=== PATIENT | female | born 1995 | race Caucasian/White ===

== ENCOUNTER 2017-03-18 15:11 | Emergency (ER) | payer MEDICAID ==
[2017-03-18 18:26] LABS: APPEARANCE HAZY (CLEAR); BILIRUBIN NEGATIVE (NEGATIVE); COLOR YELLOW (YELLOW); GLUCOSE NEGATIVE (NEGATIVE); KETONE NEGATIVE (NEGATIVE); NITRITE NEGATIVE (NEGATIVE); PROTEIN NEGATIVE (NEGATIVE); SPECIFIC GRAVITY 1.015 (1.005-1.020); UROBILINOGEN NORMAL (NORMAL)
[2017-03-18 18:28] LABS: BACTERIA MODERATE /hpf (NONE SEEN); EPITHELIAL CELLS 0-5 /hpf (0-5); HCG URINE NEGATIVE (NEGATIVE); MUCUS <1+ /lpf (NONE SEEN); RED CELLS - URINE 0-5 /hpf (0-5)
== END 2017-03-18 19:15 | disposition home or self-care (01) ==
LOC: D.ER 15:11
PROVIDERS: Nurse Practitioner Family
DX: N39.0 Urinary tract infection, site not specified (principal); N76.0 Acute vaginitis; B96.89 Other specified bacterial agents as the cause of diseases classified elsewhere; H92.02 Otalgia, left ear

== ENCOUNTER 2018-02-13 15:10 | Emergency (ER) | payer MEDICAID ==
[~2018-02-13] VITALS: Ht 162.6 cm; Wt 104.5 kg
[2018-02-13 15:19] VITALS: Ht 162.6 cm; Wt 104.5 kg
[2018-02-13] MEDS ORDERED: TORADOL10 MG PO (16:32)
[2018-02-13 17:15] VITALS: BP 104/94
== END 2018-02-13 17:15 | disposition home or self-care (01) ==
LOC: D.ER 15:10
DX: S99.922A Unspecified injury of left foot, initial encounter (principal); W51.XXXA Accidental striking against or bumped into by another person, initial encounter; Y93.89 Activity, other specified; Y92.019 Unspecified place in single-family (private) house as the place of occurrence of the external cause; F17.200 Nicotine dependence, unspecified, uncomplicated

== ENCOUNTER 2018-09-13 12:22 | Emergency (ER) | payer MEDICAID ==
[~2018-09-13] VITALS: Ht 162.6 cm; Wt 118.2 kg
[~2018-09-13 12:22] MED LIST: TORADOL10 MG PO
[2018-09-13 12:35] VITALS: BP 100/71; Ht 162.6 cm; Wt 118.2 kg
[2018-09-13 12:58] LABS: LYMPHOCYTES 36.4 % (15-50); MCH 30.9 pg (26.0-34.0); MCHC 34.1 g/dL (31.0-37.0); MCV 90.5 fL (80.0-100.0); MEAN PLATELET VOLUME 10.2 fL (7.4-10.4); NEUTROPHILS 56.3 % (40-80); PLATELET COUNT 260 10x3/uL (130-400); RBC 4.86 10x6/uL (4.00-5.40); RDW 13.2 % (11.5-14.5); WBC 7.5 10x3/uL (4.8-10.8)
[2018-09-13 13:12] LABS: ALBUMIN 3.8 g/dL (3.4-5.0); ALKALINE PHOSPHATASE 51 U/L (46-116); ALT (SGPT) 26 U/L (10-68); BILIRUBIN - TOTAL 0.42 mg/dL (0.2-1.3); CALC OSMOLALITY 273 mosm/kg (275-300); CHLORIDE - SERUM 104 mmol/L (98-107); CREATININE - SERUM 0.8 mg/dL (0.6-1.3); GLUCOSE 94 mg/dL (74-106); POTASSIUM - SERUM 4.4 mmol/L (3.5-5.1); PROTEIN - SERUM 7.5 g/dL (6.4-8.2); SODIUM 138 mmol/L (136-145); UREA NITROGEN 8 mg/dL (7-18); eGFR NON AFRICAN AMERICAN > 90 mL/min (90-120)
[2018-09-13 13:15] LABS: AMYLASE - SERUM 52 U/L (25-115); LIPASE 118 U/L (73-393)
[2018-09-13 13:16] LABS: TROPONIN-I < 0.017 ng/mL (0.000-0.060)
[2018-09-13 13:36] LABS: APPEARANCE CLEAR (CLEAR); BILIRUBIN NEGATIVE (NEGATIVE); COLOR YELLOW (YELLOW); GLUCOSE NEGATIVE (NEGATIVE); KETONE NEGATIVE (NEGATIVE); NITRITE NEGATIVE (NEGATIVE); PROTEIN NEGATIVE (NEGATIVE); SPECIFIC GRAVITY 1.015 (1.005-1.020); UROBILINOGEN NORMAL (NORMAL)
[2018-09-13 14:25] LABS: HCG URINE NEGATIVE (NEGATIVE)
[2018-09-13] MEDS ORDERED: ZOFRAN ODT4 MG/UDTAB PO (14:37)
== END 2018-09-13 14:55 | disposition home or self-care (01) ==
LOC: D.ER 12:22
PROVIDERS: Emergency Medicine
DX: R10.11 Right upper quadrant pain (principal); Z87.19 Personal history of other diseases of the digestive system; R11.0 Nausea

== ENCOUNTER 2019-04-12 14:53 | Emergency (ER) | payer MEDICAID ==
[~2019-04-12 14:53] MED LIST changes: +ZOFRAN ODT4 MG/UDTAB PO
[2019-04-12 15:09] VITALS: Ht 162.6 cm
[2019-04-12 15:49] LABS: HCG SERUM NEGATIVE (NEGATIVE)
[2019-04-12] MEDS ORDERED: TORADOL10 MG PO (17:43)
[2019-04-12 18:25] VITALS: BP 129/73
== END 2019-04-12 18:25 | disposition home or self-care (01) ==
LOC: D.ER 14:53
PROVIDERS: Family Medicine
DX: S93.401A Sprain of unspecified ligament of right ankle, initial encounter (principal); W03.XXXA Other fall on same level due to collision with another person, initial encounter; Y93.83 Activity, rough housing and horseplay; Y92.9 Unspecified place or not applicable; J45.909 Unspecified asthma, uncomplicated; Z72.0 Tobacco use; E16.2 Hypoglycemia, unspecified

== ENCOUNTER 2019-09-30 18:59 | Emergency (ER) | payer OTHER ==
[~2019-09-30] VITALS: Ht 162.6 cm; Wt 127.3 kg
[2019-09-30 19:22] VITALS: Ht 162.6 cm; Wt 127.3 kg
[2019-09-30 20:02] LABS: BILIRUBIN NEGATIVE (NEGATIVE); GLUCOSE NEGATIVE (NEGATIVE); KETONE NEGATIVE (NEGATIVE); NITRITE NEGATIVE (NEGATIVE); SPECIFIC GRAVITY 1.005 (1.005-1.020); UROBILINOGEN NORMAL (NORMAL)
[2019-09-30 20:03] LABS: HCG URINE NEGATIVE (NEGATIVE)
[2019-09-30] MEDS ORDERED: ZANAFLEX4 MG PO (21:06)
[2019-09-30] MEDS ORDERED: VOLTAREN75 MG PO (21:06)
[2019-09-30 22:03] VITALS: BP 132/77
== END 2019-09-30 22:09 | disposition home or self-care (01) ==
LOC: D.ER 18:59
PROVIDERS: Family Medicine
DX: S46.911A Strain of unspecified muscle, fascia and tendon at shoulder and upper arm level, right arm, initial encounter (principal); S00.03XA Contusion of scalp, initial encounter; V89.2XXA Person injured in unspecified motor-vehicle accident, traffic, initial encounter; Y93.9 Activity, unspecified; Y92.9 Unspecified place or not applicable; M54.2 Cervicalgia; M25.531 Pain in right wrist; M25.551 Pain in right hip; I10 Essential (primary) hypertension; Z72.0 Tobacco use